=== PATIENT | male | born 1955 | race Caucasian/White ===

== ENCOUNTER 2019-12-19 14:02 | Emergency (ER) | payer MEDICARE ==
[2019-12-19 14:19] LABS: Bilirubin Large (Negative); Blood, Urine Large (Negative); Clarity Turbid (Clear); Leukocyte Large (Negative); Nitrite Positive (Negative)
[2019-12-19 14:21] LABS: Glucose, Urine (Dipstick) Unable to Interpret mg/dL (Negative); Protein, Urine (Dipstick) Unable to Interpret mg/dL (Neg-Trace)
[2019-12-19 14:27] LABS: Bacteria/HPF Rare-Few HPF (None Seen); RBC/HPF Greater than 50 HPF (0-3); Squamous Epithelial 0-3 HPF (0-3); WBC/HPF 21-50 HPF (0-3)
[2019-12-19] MEDS ORDERED: Dicyclomine 20 MG TAB ONE (14:47)
[2019-12-19] MEDS ORDERED: Phenazopyridine HCl 97.5 MG TABLET ONE (14:47)
[2019-12-19] MEDS ORDERED: Sulfameth/Trimethoprim DS 800-160mg TAB ONE (14:47)
== END 2019-12-19 15:15 | disposition home or self-care (01) ==
LOC: BURERS 14:02
DX: N30.91 Cystitis, unspecified with hematuria (principal); E11.9 Type 2 diabetes mellitus without complications; E78.5 Hyperlipidemia, unspecified; F17.210 Nicotine dependence, cigarettes, uncomplicated; I10 Essential (primary) hypertension; J44.9 Chronic obstructive pulmonary disease, unspecified
CPT/HCPCS: 81003; 81015; 87086; 99283